=== PATIENT | female | born 1945 | race Caucasian/White ===

== ENCOUNTER 2021-02-24 17:33 | Day surgery (SDCO) | payer MEDICARE, OTHER ==
[~2021-02-24 17:33] MED LIST: ASPIRIN CHEWABL81 MG PO; ATIVAN1 MG PO; BRILINTA60 MG PO; BRILINTA90 MG PO; BUMEX1 MG PO; CATAPRES0.1 MG PO; CELEXA20 MG PO; COREG 3.125M3.125 MG PO; COZAAR100 MG PO; FLEXERIL5 MG PO; GLUCOTROL10 MG PO; HUMULIN 70100 UNIT/1 SC; HYDRALAZINE HCL25 MG PO; HYDRALAZINE25 MG PO; K-TAB ER10 MEQ PO; KEFLEX250 MG PO; LEVAQUIN500 MG PO; LEXAPRO 10MG TA10 MG PO; LIPITOR40 MG PO; LOPRESSOR25 MG PO; LOPRESSOR50 MG PO; MEDROL 4MG DOSEP4 MG PO; METOPROLOL TART75 MG PO; MICON-GUARD 2% TOP; NAMENDA 10MG TA10 MG PO; NITROLINGUAL12 GM SL; NITROQUIK SL0.4 MG SL; NORVASC2.5 MG PO; NOVOLOG MI100 UNIT/3 SC; PANTOPRAZOLE SO40 MG PO; PLAVIX75 MG PO; PREVACID30 M1 PO; PREVACID30 MG PO; PROTONIX 40MG T40 MG PO; TOPROL XL 25MG25 MG PO; TOPROL XL 50 MG50 MG PO; ULTRA-LIGHT RO1 EACH XX; VANCOMYCIN HCL1 GM PO; VITAMIN B-121000 MC1 PO; VITAMIN D-32000 UNIT PO
[2021-02-24 18:19] LABS: BASOPHIL 0.5 % (0-2); EOSINOPHIL 1.4 % (0-7); HCT 37.9 % (37.0-47.0); HGB 13.1 g/dl (12.5-16.0); LYMPHOCYTE 14.4 % (15-48); MCH 30.5 pg (25.0-31.0); MCHC 34.6 g/dL (32.0-36.0); MCV 88.1 fL (78.0-100.0); MONOCYTE 5.4 % (0-12); MPV 9.9 fL (6.0-9.5); NEUTROPHIL 77.7 % (41-80); NRBC 0; PLT 232 K/uL (150-400); RDW 13.5 % (11.5-14.0); WBC 10.1 K/uL (4.0-10.5)
[2021-02-24 18:28] LABS: BUN/CREAT RATIO (CALC) 11.4 RATIO; CREATININE 1.85 mg/dL (0.51-0.95)
[2021-02-24 20:46] LABS: BILIRUBIN NEGATIVE (NEGATIVE); BLOOD NEGATIVE Ery/uL (NEGATIVE); CLARITY CLEAR (CLEAR); COLOR YELLOW (YELLOW); GLUCOSE (U) NORMAL (NORMAL); LEUKOCYTES NEGATIVE Leu/uL (NEGATIVE); NITRITE NEGATIVE (NEGATIVE); PROTEIN NEGATIVE (NEGATIVE); SPECIFIC GRAVITY 1.015 (1.001-1.030); UROBILINOGEN 0.2 mg/dL (0.2-1.0); pH 5.5 (5.0-9.0)
[2021-02-25] MEDS ORDERED: ASPIRIN EC81 MG PO (00:44)
[2021-02-25] MEDS ORDERED: LEXAPRO 10MG TA10 MG PO (00:45)
[2021-02-25] MEDS ORDERED: PEPCID AC20 MG PO (00:46)
[2021-02-25] MEDS ORDERED: GLUCOTROL10 MG PO (00:46)
[2021-02-25 06:58] LABS: BASOPHIL 0.5 % (0-2); EOSINOPHIL 2.9 % (0-7); HCT 36.2 % (37.0-47.0); HGB 11.7 g/dl (12.5-16.0); LYMPHOCYTE 30.5 % (15-48); MCH 30.4 pg (25.0-31.0); MCHC 32.3 g/dL (32.0-36.0); MONOCYTE 10.5 % (0-12); MPV 9.8 fL (6.0-9.5); NEUTROPHIL 55.1 % (41-80); NRBC 0; PLT 158 K/uL (150-400); RBC 3.85 M/uL (4.20-5.40); RDW 13.6 % (11.5-14.0); WBC 6.6 K/uL (4.0-10.5)
[2021-02-25 07:17] LABS: BUN/CREAT RATIO (CALC) 10.2 RATIO; CREATININE 1.66 mg/dL (0.51-0.95); POTASSIUM 3.9 mmol/L (3.5-5.1)
--- NOTE | 2021-02-25 19:13 | NUR ---
PT VOICED CONCERNS OF DIAGNOSIS AND PREVIOUS INFORMATION SHE WAS TOLD AND THEN INFORMATION SHE WAS TOLD BY HER DAUGHTER. PT ASKED FOR CLARIFICATION OF DIAGNOSIS AND GETTING HER QUESTIONS ANSWERED. EXPLAINED TO PATIENT GASTROPARESIS AND ACUTE KIDNEY INJURY. PT STILL VOICES CONFUSION. SPOKE TO DR ELIZONDO TO SEE IF HE CAN EDUCATE PT TOMORROW ABOUT DIAGNOSIS AND CLARIFY QUESTIONS REGARDING CARE. DR ELIZONDO AKNOWLEDGED GIVING EDUCATION TOMORROW.
[2021-02-26 06:07] LABS: BASOPHIL 0.4 % (0-2); EOSINOPHIL 4.4 % (0-7); HCT 33.8 % (37.0-47.0); HGB 11.2 g/dl (12.5-16.0); LYMPHOCYTE 31.3 % (15-48); MCH 30.4 pg (25.0-31.0); MCHC 33.1 g/dL (32.0-36.0); MCV 91.6 fL (78.0-100.0); MONOCYTE 8.9 % (0-12); MPV 9.9 fL (6.0-9.5); NEUTROPHIL 54.6 % (41-80); NRBC 0; PLT 138 K/uL (150-400); RBC 3.69 M/uL (4.20-5.40); RDW 13.3 % (11.5-14.0); WBC 4.5 K/uL (4.0-10.5)
[2021-02-26 06:23] LABS: ALBUMIN 3.4 g/dL (3.4-5.0); BILIRUBIN - TOTAL 0.5 mg/dL (0.2-1.0); BUN/CREAT RATIO (CALC) 7.9 RATIO; CREATININE 1.27 mg/dL (0.51-0.95); GLOBULIN (CALCULATION) 2.7 g/dL; POTASSIUM 3.9 mmol/L (3.5-5.1); TOTAL PROTEIN 6.1 g/dL (6.4-8.2)
== END 2021-02-26 18:25 | disposition home or self-care (01) ==
LOC: FER 17:33 → FMS 22:14
PROVIDERS: Nurse Practitioner; Nurse Practitioner Family; ADMIT Internal Medicine
DX: A41.89 Other specified sepsis (principal); A08.4 Viral intestinal infection, unspecified; N17.9 Acute kidney failure, unspecified; E86.0 Dehydration; E11.51 Type 2 diabetes mellitus with diabetic peripheral angiopathy without gangrene; I10 Essential (primary) hypertension; I25.10 Atherosclerotic heart disease of native coronary artery without angina pectoris; I25.2 Old myocardial infarction; E78.5 Hyperlipidemia, unspecified; J44.9 Chronic obstructive pulmonary disease, unspecified; M19.90 Unspecified osteoarthritis, unspecified site; I69.311 Memory deficit following cerebral infarction; F03.90 Unspecified dementia, unspecified severity, without behavioral disturbance, psychotic disturbance, mood disturbance, and anxiety; K21.9 Gastro-esophageal reflux disease without esophagitis; Z87.891 Personal history of nicotine dependence; Z79.4 Long term (current) use of insulin; Z79.82 Long term (current) use of aspirin; Z79.899 Other long term (current) drug therapy; Z88.8 Allergy status to other drugs, medicaments and biological substances; Z95.5 Presence of coronary angioplasty implant and graft; Z20.822 Contact with and (suspected) exposure to COVID-19
CPT/HCPCS: 36415; 71046; 78264; 80048; 80053; 81003; 82962; 84484; 85025; 93005; G0378; J1644; J2060; J2405; J7030; U0002